=== PATIENT | female | born 1975 | race Caucasian/White ===

== ENCOUNTER 2018-01-19 12:41 | Day surgery (SDC) | payer OTHER ==
[~2018-01-19 12:41] MED LIST: ACETAMINOPHEN 1000 MG/100 ML IVPB; DEXAMETHASONE 4 MG/ML 1 ML INJ; ONDANSETRON 4 MG INJ; ROCURONIUM 50 MG INJ
[2018-01-19] MEDS ORDERED: LACTATED RINGER'S 1,000 ML IV* (13:00)
[2018-01-19] MEDS ORDERED: metroNIDAZOLE 500 MG/NS (PMX) 100 ML IVPB ×2 (13:00→14:36)
[2018-01-19] MEDS ORDERED: FENTAnyl 50 MCG/ML VIAL (13:57)
[2018-01-19] MEDS ORDERED: MIDAZOLAM 1 MG/ML 2 ML INJ (13:58)
[2018-01-19] MEDS ORDERED: METOCLOPRAMIDE 10 MG INJ (13:59)
[2018-01-19] MEDS ORDERED: LIDOCAINE 2% (SDV) 5 ML INJ (14:02)
[2018-01-19] MEDS ORDERED: PROPOFOL 20 ML (14:02)
[2018-01-19] MEDS ORDERED: SUCCINYLCHOLINE CHLORIDE 100 MG/5 ML SYG IV (14:02)
[2018-01-19] MEDS ORDERED: SUGAMMADEX SODIUM 200 MG/2 ML VIAL IV ×2 (14:38→14:59)
[2018-01-19] MEDS ORDERED: BUPIVACAINE 0.5% (SDV) 30 ML INJ (14:49)
[2018-01-19] MEDS: LIDOCAINE 1% (MPF) 30 ML INJ (14:51)
[2018-01-19] MEDS: BUPIVACAINE 0.5%/EPI (SDV) 30 ML INJ (14:51)
[2018-01-19] MEDS ORDERED: FENTAnyl 50 MCG/ML VIAL IV ×2 (15:30)
[2018-01-19] MEDS ORDERED: HYDROmorphONE 1 MG/5 ML IV SYRINGE IV ×2 (15:30)
[2018-01-19] MEDS ORDERED: IPRATROPIUM (NEB) 0.5 MG/2.5 ML AMP HHN (15:30)
[2018-01-19] MEDS ORDERED: ONDANSETRON 4 MG INJ IV (15:30)
[2018-01-19] MEDS ORDERED: LABETALOL HCL 20MG INJ IV (15:30)
[2018-01-19] MEDS ORDERED: hydrALAzine 20 MG INJ IV (15:30)
[2018-01-19] MEDS ORDERED: MEPERIDINE 25 MG INJ IV (15:30)
[2018-01-19] MEDS ORDERED: KETOROLAC 30 MG INJ IV (15:30)
[2018-01-19] MEDS ORDERED: DIPHENHYDRAMINE 50 MG INJ IV (15:30)
== END 2018-01-19 16:22 | disposition home or self-care (01) ==
LOC: SDS 12:41
DX: K60.3 Anal fistula (principal)
CPT/HCPCS: 46270; 88300